=== PATIENT | female | born 1970 | race Caucasian/White ===

== ENCOUNTER 2016-06-25 17:21 | Emergency (ER) | payer OTHER ==
[2016-06-25 18:05] VITALS: BMI 30.9
[2016-06-25] MEDS ORDERED: OXYCODONE HCL 5 MG TABLET PO ONE (18:06)
--- NOTE | 2016-06-25 18:09 | EDPRACDOC ---
- General Information Stated Complaint: BACK/HIP PAIN Time Seen by Provider: 06/25/16 18:00 Information Source: Patient Home Medications: Home Medications Diazepam [Valium] 5 mg PO TID PRN #15 tablet 06/25/16 Oxycodone HCl/Acetaminophen [Percocet 5-325 mg Tablet] 1 tab PO Q6H PRN #20 tab 06/25/16 Prednisone [Deltasone, Orasone] 20 mg PO DAILY #20 tab 06/25/16 - History of Present Illness Onset: 2 days HPI: Pt c/o lower back pain radiating to R groin x 2 days. Denies abd pain, loss of control bowel or bladder, leg weakness or numbness, rash. C/o nausea Pain Location: Reports: Lumbar Pain Radiates To: Reports: Other (R hip and RLQ) Pain Caused By: Reports: Spontaneous Circumstances: Reports: Unknown Currently ?: No (hysterectomy) Pain Severity: Reports: Moderate, Severe Pain Quality: Reports: Aching, Sharp, Stabbing Worsened By: Reports: Movement, Walking Associated Signs and Symptoms: Reports: Abdominal Pain, Nausea ED Past Medical History - History Reviewed Yes Nurses notes reviewed and agree except as marked - Social Medical History Smoking Status: Never smoker ETOH: None Substance Abuse: None EDM Review of Systems - Review of Systems Constitutional: No Symptoms Reported. negative: Fever, Chills, Weakness, Fatigue, Loss of Appetite Respiratory: No Symptoms Reported. negative: Cough, Brassy Cough, Barky Cough, Shortness of Breath, Wheezing, Hemoptysis Cardiovascular: No Symptoms Reported. negative: Chest Pain, Palpitations, Syncope, Edema, Orthopnea, PND, Skin Mottling, Cyanosis Gastrointestinal: Nausea, Pain Genitourinary: No Symptoms Reported. negative: Dysuria, Hematuria, Frequency, Discharge, Bleeding, Testicular Pain, Neurological: No Symptoms Reported. negative: Headache, Dizziness, Seizure, Numbness, Weakness, Speech Difficulty, Gait Difficulty Musculoskeletal: Back, Hip Integumentary: No Symptoms Reported. negative: Itching, Rash, Bruising, Wound Allergic/Immunologic: No Symptoms Reported. negative: Hives, Itching Hematologic: No Symptoms Reported. negative: Lymphadenopathy, Easy Bruising, Easy Bleeding Psychiatric: No Symptoms Reported. negative: Anxiety, Depression, Hallucinations, Insomnia, Suicidal - Physical Exam Constitutional: Alert Oriented to: Time, Person, Place Last recorded Vital Signs: Last Vital Signs Temp Pulse 144 H 06/25/16 18:04 Resp 24 06/25/16 18:04 BP 135/85 06/25/16 18:04 Pulse Ox 96 06/25/16 18:04 Oxygen Pulse Oxygen Saturation 96 O2 Device Room Air Oxygen Flow Rate Fraction of Inspired Oxygen ( FIO2) - HEENT Head: Normal ( normocephalic) Eye Exam: Normal (PERRL, EOMI, Sclera white) - Respiratory/Cardiovascular Respiratory: Normal - CTA (BBS clear to auscultation without adventitious sounds ) Cardiovascular: Tachycardia - GI Auscultation: Normal (NABS) Palpation: Normal (Soft,No rebound or guarding, non distended) Tenderness: Mild, RLQ - Musculoskeletal Back: Normal (Non-Tender) Extremities: Normal (Normal tone, Pulses 2+ No cyanosis or edema, FROM) - Integumentary Skin: Normal, Warm, Dry Lymphatics: Normal (no adenopathy) - Neurologic Memory Impaired: Normal Motor Function: Normal (Normal tone, Pulses 2+ No cyanosis or edema, FROM) Mood Description: Normal Perception: Normal ED Back Exam - Neurologic Motor Deficit: None (strength 5/5, sensation nl) Reflexes: Normal (CN II-X11 intact) - Musculoskeletal Cervical: Normal Thoracic: Normal Lumbar: Normal Midline: Normal Paraspinous: Normal Straight Leg Raise: Positive (R) Pelvis: Normal - Differential Diagnosis DJD, HNP, Musculoskeletal pain, Pyelonephritis, Strain, Urolithiasis, Urinary tract infection - Results 06/25/16 20:06 Laboratory Results - last 24 hr 06/25/16 18:22 Urine Color Yellow Urine Clarity Clear Urine pH 6.0 Ur Specific Frost 1.020 Urine Protein 1+ H Urine Glucose (UA) Neg Urine Ketones Neg Urine Occult Blood Neg Urine Nitrite Neg Urine Bilirubin 2+ H Urine Urobilinogen <2.0 Ur Leukocyte Esterase Neg Urine RBC 0-2 Urine WBC 0-2 Ur Epithelial Cells 1+ Calcium Oxalate Crystal 1+ Urine Bacteria 1+ H Urine Mucus Sm amt - Diagnostic Imaging Abdomen Image interpreted by: Radiologist IMPRESSION: 1. Hepatic steatosis and hepatomegaly. 2. Moderate hiatal hernia. 3. Normal appearance of the kidneys. 4. Normal appendix. 5. Colonic diverticulosis. 6. Minimal abdominal aortic atherosclerosis. Decision Time to Discharge: 20:06 - Departure Disposition: Home Condition: Good Final Diagnosis: Lumbar radiculopathy Sciatica Qualifiers: Laterality: right Qualified Code(s): M54.31 - Sciatica, right side Instructions: Sciatica (ED), Lumbar Radiculopathy (ED) Education/Counseling Given To: Patient Education/Counseling Given Regarding: Diagnosis, Treatment, Follow Up Referrals: Stephanie Arora, [facility] [Primary Care Provider] - One Week Prescriptions: Diazepam [Valium] 5 mg PO TID PRN #15 tablet PRN Reason: Muscle Spasms Oxycodone HCl/Acetaminophen [Percocet 5-325 mg Tablet] 1 tab PO Q6H PRN #20 tab PRN Reason: Pain Prednisone [Deltasone, Orasone] 20 mg PO DAILY #20 tab Additional Instructions: Return for worse or different symptoms.
[2016-06-25 18:41] LABS: CA OXALATE 1+; LEUKOCYTES/URINE NEG (NEGATIVE); NITRITE/URINE NEG (NEGATIVE); RBC/URINE 0-2 (0-5); URINE OCCULT BLOOD NEG (NEG/TRACE); WBC/URINE 0-2 (0-5)
--- NOTE | 2016-06-25 19:51 | DIRPT ---
CLINICAL DATA: Right lower quadrant pain. Lower back pain. Right flank pain radiates to the right lower quadrant and down to the right leg. No Renan injury. No history of stones. Previous hysterectomy and bladder surgery. EXAM: CT ABDOMEN AND PELVIS WITHOUT CONTRAST TECHNIQUE: Multidetector CT imaging of the abdomen and pelvis was performed following the standard protocol without IV contrast. COMPARISON: None. FINDINGS: Lower chest: Heart size is normal. No imaged pericardial effusion or significant coronary artery calcifications. No pulmonary nodules, pleural effusions, or infiltrates. Upper abdomen: Liver is diffusely low attenuation consistent with hepatic steatosis. No focal liver lesions are identified. Liver is enlarged. No focal abnormality identified within the spleen, pancreas, or adrenal glands. Kidneys are symmetric in size. No hydronephrosis. No intrarenal or ureteral stones. Gallbladder is present. Gastrointestinal tract: Moderate hiatal hernia present, containing air-fluid level. Small bowel loops are normal in appearance. The appendix is well seen and has a normal appearance. Numerous colonic diverticula are present. No acute diverticulitis. Pelvis: Uterus is absent. No adnexal mass. No free pelvic fluid. Retroperitoneum: Minimal atherosclerosis of the abdominal aorta. No retroperitoneal or mesenteric adenopathy. Abdominal wall: Negative. Osseous structures: No suspicious lytic or blastic lesions are identified. IMPRESSION: 1. Hepatic steatosis and hepatomegaly. 2. Moderate hiatal hernia. 3. Normal appearance of the kidneys. 4. Normal appendix. 5. Colonic diverticulosis. 6. Minimal abdominal aortic atherosclerosis. Electronically Signed By: Susanne Valentine M.D. On: 06/25/2016 19:48
[2016-06-25 20:06] VITALS: BP 148/75; PULSE 94
== END 2016-06-25 20:17 | disposition home or self-care (01) ==
LOC: EDMC 17:21
DX: M54.16 Radiculopathy, lumbar region (principal); M54.31 Sciatica, right side; R10.30 Lower abdominal pain, unspecified
CPT/HCPCS: 74176; 81001; 99283; J3490